=== PATIENT | male | born 1955 | race Caucasian/White ===

== ENCOUNTER 2019-01-02 09:26 | Day surgery (SDC) | payer BC, OTHER ==
[2018-12-28 13:31] VITALS: BMI 27.7
[2019-01-02 13:18] VITALS: BP 105/67; PULSE 65; TEMP 97
--- NOTE | 2019-01-04 16:34 | PATH ---
Surgical Pathology Report Patient Name: CESAR SALINAS [facility]. Rec. #: [id number] /Age/Gender: 1955 (Age: 63) / M Account: [id number] Location: [facility] Taken: 01/02/2019 Received: 01/02/2019 Reported: 01/04/2019 Physicians: Matthew Restrepo M.D. Specimen(s) Received A: SECOND PORTION DUODENUM B: ANTRUM C: GE JUNCTION Clinical History Reflux Postoperative diagnosis: Gastritis Final Diagnosis A. SECOND PORTION DUODENUM, BIOPSY: DUODENUM MUCOSA WITH NO SIGNIFICANT PATHOLOGIC CHANGE. NO HISTOLOGIC EVIDENCE OF CELIAC DISEASE. B. GASTRIC ANTRUM, BIOPSY: GASTRIC MUCOSA WITH ACTIVE CHRONIC GASTRITIS AND INTESTINAL METAPLASIA. IMMUNOSTAIN FOR H. PYLORI IS NEGATIVE. C. GE JUNCTION, BIOPSY: GASTROESOPHAGEAL JUNCTIONAL MUCOSA WITH REFLUX ESOPHAGITIS. NEGATIVE FOR INTESTINAL METAPLASIA. Electronically Signed Juanito Fishman M.D. Gross Description A. Received in formalin, labeled "biopsy second portion of duodenum" are 2 wheat[place], irregular portions of soft tissue measuring 0.3 and 0.4 cm. in greatest dimension. The specimens are submitted in toto in one cassette. B. Received in formalin, labeled "biopsy gastric antrum" are 2 wheat[place], irregular portions of soft tissue averaging 0.4 cm. in greatest dimension. The specimens are submitted in toto in one cassette. C. Received in formalin, labeled "biopsy GE junction" is a wheatley, irregular portion of soft tissue measuring 0.2 cm. in greatest dimension. The specimen is submitted in toto in one cassette. 01/03/2019 saudi01/03/2019
== END 2019-01-02 11:45 | disposition home or self-care (01) ==
LOC: FASU-ENDO 09:26
PROVIDERS: ATTEND Internal Medicine Gastroenterology
PROC: 0DB98ZX Excision of Duodenum, Via Natural or Artificial Opening Endoscopic, Diagnostic (ICD-10-PCS; 2019-01-02)
PROC: 0DB48ZX Excision of Esophagogastric Junction, Via Natural or Artificial Opening Endoscopic, Diagnostic (ICD-10-PCS; 2019-01-02)
PROC: 0DB68ZX Excision of Stomach, Via Natural or Artificial Opening Endoscopic, Diagnostic (ICD-10-PCS; principal; 2019-01-02 10:48)
DX: K29.50 Unspecified chronic gastritis without bleeding (principal); K31.89 Other diseases of stomach and duodenum; K21.0 Gastro-esophageal reflux disease with esophagitis; R12 Heartburn
CPT/HCPCS: 88305-TC; 88342-TC